=== PATIENT | male | born 1970 | race Caucasian/White ===

== ENCOUNTER 2020-04-18 23:16 | Inpatient (IN) | payer OTHER ==
[~2020-04-18] VITALS: Ht 182.9 cm; Wt 76.7 kg
--- NOTE | 2020-04-18 23:32 | NUR ---
PTE SE RECIBE POR ABDOMINAL PAIN REFIERE PTE.
--- NOTE | 2020-04-19 00:36 | NUR ---
PT ALERTA Y ORIENTADO X3 ESFERAS SE LE ORIENTA SOBRE TX Y REFIERE ENTEDER. SE ALEX MUESTRAS DE LOLITA Y VENOPUNCION CON TECNICAS ASEPTICAS. PT TOLERA TX. PENDIENTE CT ABDOMINAL/PELVICO CON CONTRASTE PO.
--- NOTE | 2020-04-19 07:08 | NUR ---
SE RECIBE PTE ALERTA Y ORIENTADO X3 EN JACKELYN CON BARANDAS ELEVADAS. PTE SE OBSERVA CON H/L EL CUAL SE ENCUENTRA PATENTE Y CINTHYA DE EDEMA. PTE CON 0.9NSS BAJANDO A 100ML/HR. PTE CON TUBO NGT EN FOSSA RT CONECTADO A SUCCION INTERMITENTE. PTE EN ESPERA DE CONSULTA CON CIRUGIA. PTE SE CONTINUA MONITORIANDO.
== END 2020-04-23 12:55 | disposition home or self-care (01) | DRG 337 ==
LOC: ER 23:16 → SURH 04-19 07:45 → SEC-K 04-19 07:45 → SURH 04-19 08:28
PROVIDERS: ADMIT Surgery; ATTEND Surgery
PROC: BW21Y0Z Computerized Tomography (CT Scan) of Abdomen and Pelvis using Other Contrast, Unenhanced and Enhanced (ICD-10-PCS; 2020-04-19)
PROC: 0DH67UZ Insertion of Feeding Device into Stomach, Via Natural or Artificial Opening (ICD-10-PCS; 2020-04-19)
PROC: 3E0G76Z Introduction of Nutritional Substance into Upper GI, Via Natural or Artificial Opening (ICD-10-PCS; 2020-04-19)
PROC: 0DNC4ZZ Release Ileocecal Valve, Percutaneous Endoscopic Approach (ICD-10-PCS; principal; 2020-04-21 12:30)
DX: K56.690 Other partial intestinal obstruction (principal); K66.0 Peritoneal adhesions (postprocedural) (postinfection); Z20.828 Contact with and (suspected) exposure to other viral communicable diseases

== ENCOUNTER → 2020-05-31 | Outpatient (CLI) | payer OTHER | END | disposition home or self-care (01) | LOC: OFIC 805 10:45 | PROVIDERS: ATTEND Otolaryngology | DX: H93.13 Tinnitus, bilateral (principal); H90.3 Sensorineural hearing loss, bilateral ==